=== PATIENT | female | born 1995 | race Hispanic/Latino ===

== ENCOUNTER 2018-04-10 23:07 | Emergency (ER) | payer BC ==
[~2018-04-10] VITALS: Ht 154.9 cm; Wt 54.4 kg
[2018-04-11] MEDS ORDERED: KETOROLAC TROMETHAMINE 60 MG/2 ML VIAL IM ONE (01:15)
--- NOTE | 2018-04-11 02:01 | Diagnostic Imaging Report ---
CHEST 2 VIEWS, Technique: CHEST 2 VIEWS Comparison: None Clinical history: Pleuritic chest pain DISCUSSION: Normal appearance of the heart, mediastinum, lungs and pleural spaces. IMPRESSION: No acute abnormality Signed by: Dr Jeanne Santos MD on 04/11/2018 1:57 AM
--- NOTE | 2018-04-11 02:01 | Diagnostic Imaging Report ---
ABDOMEN COMP INCL UPR or DECUB Clinical history: Bloating, gassy Technique: AP view abdomen, supine and upright Comparison: None Findings: Abdomen: No dilated loops of small or large bowel. Mild stool is seen throughout the colon. No free air. Other: No acute findings. Impression: No evidence of obstruction or free air. Signed by: Dr Jeanne Santos MD on 04/11/2018 1:57 AM
[2018-04-11 02:13] VITALS: BP 118/72
== END 2018-04-11 02:15 | disposition home or self-care (01) ==
LOC: ER 23:07
DX: R07.89 Other chest pain (principal)
CPT/HCPCS: 71046; 81025; 99283; J1885